=== PATIENT | female | born 1945 | race Caucasian/White ===

== ENCOUNTER 2019-03-08 12:07 | Emergency (ER) | payer MEDICARE ==
--- NOTE | 2019-03-08 12:44 | UC ---
UC General HPI - HPI Summary HPI Summary: pt is c/o having watery diarrhea since this am, about 5x's. she denies having any black or bloody stool as well as no nausea or vomiting. she has no abdominal pain, hx IBD, diverticular disease, sick contacts, travel hx or recent antibiotic use. she denies having fever. she did self tx with Peptobismol with no relief. she is taking po fluids but reports feeling weak because "it just runs right through me". she has attempted no solid foods. she admits to feeling lightheaded upon standing but denies any cp, sob or diaphoresis. she is also c/o a headache. - History of Current Complaint Chief Complaint: UCGI Stated Complaint: DIARRHEA Time Seen by Provider: 03/08/19 12:36 Hx Obtained From: Patient Pain Intensity: 8 Associated Signs & Symptoms: Positive: Diarrhea, Weakness. Negative: Abdominal Pain, Chest Pain, Dizziness, Fever, Melena - Allergy/Home Medications Allergies/Adverse Reactions: Allergies Allergy/AdvReac Type Severity Reaction Status Date / Time No Known Allergies Allergy Verified 03/08/19 12:17 Home Medications: Home Medications Bismuth Subsalicylate [Pepto-Bismol Max Strength] 525 mg PO PRN 03/08/19 [ History] Cholecalciferol TAB* [Vitamin D TAB*] 1,000 unit PO DAILY 03/08/19 [History Confirmed 03/08/19] Levothyroxine TAB* [Synthroid TAB*] 50 mcg PO DAILY 03/08/19 [History Confirmed 03/08/19] Multivitamin [Multivitamins] 1 cap PO DAILY 03/08/19 [History Confirmed 03/08/19 ] PMH/Surg Hx/FS Hx/Imm Hx Endocrine History: Thyroid Disease - Surgical History Surgical History: Yes Surgery Procedure, Year, and Place: PARTIAL HYSTERECTOMY - Family History Known Family History: Positive: Non-Contributory - Social History Lives: With Family Alcohol Use: None Substance Use Type: None Smoking Status (MU): Never Smoked Tobacco Review of Systems All Other Systems Reviewed And Are Negative: Yes Gastrointestinal: Positive: Diarrhea. Negative: Abdominal Pain, Vomiting, Nausea Neurological: Positive: Headache, Weakness Physical Exam Triage Information Reviewed: Yes Appearance: Well-Appearing Vital Signs: Initial Vital Signs Temp 98.5 F 03/08/19 12:20 Pulse 110 03/08/19 12:20 Resp 20 03/08/19 12:20 BP 124/59 03/08/19 12:20 Pulse Ox 99 03/08/19 12:20 Vital Signs Reviewed: Yes Eyes: Positive: Conjunctiva Clear ENT: Positive: Pharynx normal, TMs normal. Negative: Nasal congestion, Nasal drainage Neck: Positive: Supple, Nontender, No Lymphadenopathy Respiratory: Positive: Lungs clear, Normal breath sounds, No respiratory distress Cardiovascular: Positive: No Murmur, Brisk Capillary Refill, Tachycardia - rate= 108 Abdomen Description: Positive: Nontender, No Organomegaly, Soft. Negative: Distended, Guarding Bowel Sounds: Positive: Hyperactive Musculoskeletal: Positive: ROM Intact Neurological: Positive: Alert Psychological: Positive: Normal Response To Family, Age Appropriate Behavior Skin Exam: Normal Re-Evaluation - Re-Evaluation First Eval Re-Evaluation Time: 13:44 Change: Improved - taking po fluids. no v/d since arrival. Second Eval Re-Evaluation Time: 14:12 Change: Improved - HR=88. continues with po fluids. feels improved and no diarrhea Course/Dx - Course Course Of Treatment: ER TRANSFER SUGGESTED GIVEN PT AGE, FEELING WEAK AND LIGHTHEADED WHEN STANDING SO THAT SHE MAY GET IV FLUIDS AND HAVE LABS DONE IN REAL TIME; HOWEVER, SHE IS DECLINING THE TRANSFER. SINCE NO TX IS NOT IN HER BEST INTEREST, I WILL GIVE IV FLUID HERE AND CHECK OUT PT CBC, BMP TO WHICH PT AGREES. 2:30pm, pt has consumed 737ml po fluids plus 550ml NS IV and reports feeling much improved and needed to urinate post tx thus will d/c the IV and discharge to home. - Diagnoses Provider Diagnosis: Diarrhea Discharge - Sign-Out/Discharge Documenting (check all that apply): Patient Departure All imaging exams completed and their final reports reviewed: No Studies - Discharge Plan Condition: Stable Disposition: HOME Patient Education Materials: Acute Diarrhea (ED) Referrals: Baltazar Sparks MD [Primary Care Provider] - Additional Instructions: FOLLOW UP WITH YOUR DOCTOR WITHIN THE NEXT 3 DAYS. GO TO THE ER FOR ANY WORSENING. - Billing Disposition and Condition Condition: STABLE Disposition: Home - Attestation Statements Provider Attestation: I was available for consult. This patient was seen by the JESSICA. The patient was not presented to , seen by or examined by me Krish Goff MD
[2019-03-08] MEDS ORDERED: NS 0.9% 1000 ML** 1,000 ML IV ONE (12:50)
[2019-03-08 14:42] VITALS: BP 132/52
[2019-03-09 10:49] LABS: ABS Basophils 0 10^3/ul (0-0.2); ABS Eosinophils 0 10^3/ul (0-0.6); ABS Lymphocytes 0.5 10^3/ul (1.0-4.8); ABS Monocytes 0.3 10^3/ul (0-0.8); ABS Neutrophils 4.2 10^3/ul (1.5-7.7); ABS Nucleated RBC 0 10^3/ul; Eosinophil % 0.4 %; Hematocrit 42 % (33-41); Lymphocyte % 9.5 %; Mean Corpuscular HGB Conc 34 g/dL (31-36); Mean Corpuscular Hemoglobin 31 pg (27-31); Mean Corpuscular Volume 92 fL (80-97); Nucleated Red Blood Cells % 0.2; Platelet Count 167 10^3/uL (150-450); Red Blood Count 4.57 10^6 /uL (3.70-4.87); Red Cell Distribution Width 14 % (10.5-15)
[2019-03-09 11:00] LABS: Calcium 8.6 mg/dL (8.6-10.3); Potassium 4.1 mmol/L (3.5-5.0)
[2019-03-09 11:06] LABS: BUN/Creatinine Ratio 17.3 (8-20); EGFR African American 67.7 (>60); EGFR Non-African American 55.9 (>60)
== END 2019-03-08 14:56 | disposition home or self-care (01) ==
LOC: UCCORT 12:07
DX: R19.7 Diarrhea, unspecified (principal); E07.9 Disorder of thyroid, unspecified; R51 Headache; R53.1 Weakness
CPT/HCPCS: 36415; 80048; 85025; 96360; 99212; G0463

== ENCOUNTER 2019-12-08 15:24 | Emergency (ER) | payer MEDICARE ==
[2019-12-08 15:34] VITALS: BP 148/72
--- NOTE | 2019-12-08 16:18 | UC ---
Back Pain HPI - HPI Summary HPI Summary: The patient is a 74-year-old female with a 2 day history of right thoracic back pain. She states it hurts when she twists or takes a deep breath in. She has had no fever or chills. She denies any URI symptoms. She denies any UTI symptoms. She has had no chest pain or shortness of breath. - History of Current Complaint Chief Complaint: UCRespiratory Stated Complaint: resp complaint Time Seen by Provider: 12/08/19 16:13 Hx Obtained From: Patient Onset/Duration: Sudden Onset, Gradual Onset Timing: Constant Severity Initially: Mild Severity Currently: Moderate Pain Intensity: 5 Pain Scale Used: 0-10 Numeric Back Pain: Is Discrete @ - see image Character: Dull, Aching Aggravating Factor(s): Movement, Bending, Other - deep breath Alleviating Factor(s): Rest Associated Signs And Symptoms: Negative: Swelling, Redness, Bruising, Fever, Weakness, Numbness, Tingling, Abdominal Pain, Flank Pain, Bladder Incontinence, Bowel Incontinence, Weight Loss, Pain with Weight Bearing Full Body (No Head): 1 - pain here - Allergies/Home Medications Allergies/Adverse Reactions: Allergies Allergy/AdvReac Type Severity Reaction Status Date / Time adhesive tape Allergy Rash Verified 12/08/19 15:34 Home Medications: Home Medications Acetaminophen [Tylenol Extra Strength] 2 tab PO ONCE PRN 12/08/19 [History Confirmed 12/08/19] Omeprazole Magnesium [Prilosec] 1 tab PO DAILY 12/08/19 [History Confirmed 12/08] PMH/Surg Hx/FS Hx/Imm Hx Previously Healthy: Yes Endocrine History: Hypothyroidism - Surgical History Surgical History: Yes Surgery Procedure, Year, and Place: PARTIAL HYSTERECTOMY - Family History Known Family History: Positive: Non-Contributory - Social History Alcohol Use: None Substance Use Type: None Smoking Status (MU): Never Smoked Tobacco Review of Systems All Other Systems Reviewed And Are Negative: Yes Constitutional: Positive: Fatigue Skin: Positive: Negative Eyes: Positive: Negative ENT: Positive: Negative Respiratory: Positive: Negative Cardiovascular: Positive: Negative Gastrointestinal: Positive: Negative Genitourinary: Positive: Negative Motor: Positive: Negative Neurovascular: Positive: Negative Musculoskeletal: Positive: Negative Neurological: Positive: Negative Psychological: Positive: Negative Physical Exam Triage Information Reviewed: Yes Appearance: Well-Appearing, No Pain Distress, Well-Nourished Vital Signs: Initial Vital Signs Temp 97.7 F 12/08/19 15:29 Pulse 78 12/08/19 15:29 Resp 18 12/08/19 15:29 BP 148/72 12/08/19 15:29 Pulse Ox 97 12/08/19 15:29 Vital Signs Reviewed: Yes Eyes: Positive: Conjunctiva Clear ENT: Positive: Hearing grossly normal, Uvula midline. Negative: Nasal congestion, Nasal drainage, Trismus, Muffled voice, Hoarse voice Dental: Negative: Abscess @ Neck: Positive: Supple, Nontender, No Lymphadenopathy Respiratory: Positive: Chest non-tender, Lungs clear, Normal breath sounds, No respiratory distress, No accessory muscle use Cardiovascular: Positive: RRR, No Murmur Abdomen Description: Positive: Nontender, No Organomegaly. Negative: CVA Tenderness (R), CVA Tenderness (L) Bowel Sounds: Positive: Present Musculoskeletal: Positive: ROM Intact, No Edema Neurological: Positive: Alert Psychological Exam: Normal Skin Exam: Normal Diagnostics - Laboratory Lab Results: UA + leuks - Radiology No standard instances Radiology Interpretation Completed By: Radiologist Summary of Radiographic Findings: #. Elevated lung volumes and mild prominence of interstitial markings. No compelling alveolar consolidation to suggest pneumonia. Negative for focal pulmonary lesions, pleural effusions, or pneumothorax. #. Negative for cardiomegaly. Unremarkable central pulmonary vasculature. Moderate retrocardiac hiatal hernia with air-fluid level. #. Unremarkable soft tissue contours and osseous structures for age. IMPRESSION: # . Stigmata of probable obstructive lung disease. No acute pulmonary or cardiac process evident Back Pain Course/Dx - Differential Dx/Diagnosis Provider Diagnosis: Strain of thoracic region, Hiatal hernia Discharge ED - Sign-Out/Discharge Documenting (check all that apply): Patient Departure All imaging exams completed and their final reports reviewed: Yes - Discharge Plan Condition: Stable Disposition: HOME Prescriptions: Cephalexin CAP* [Keflex CAP*] 500 mg PO BID #10 cap Patient Education Materials: Thoracic Pain (ED), Hiatal Hernia (ED) Referrals: Rosalino GORDONManfred [Primary Care Provider] - 1 Week Additional Instructions: we will start antibiotics in case you have a UTI I suspect your symptoms are due to a back strain tylenol - Billing Disposition and Condition Condition: STABLE Disposition: Home
--- NOTE | 2019-12-10 18:41 | UC ---
- Progress Note Progress Note: Urine culture final with no growth of clinically significant organisms. Patient to be called and instructed to discontinue antibiotic. Course/Dx - Diagnoses Provider Diagnoses: Strain of thoracic region, Hiatal hernia Discharge ED - Sign-Out/Discharge Documenting (check all that apply): Post-Discharge Follow Up All imaging exams completed and their final reports reviewed: Yes - Discharge Plan Condition: Stable Disposition: HOME Prescriptions: Cephalexin CAP* [Keflex CAP*] 500 mg PO BID #10 cap Patient Education Materials: Hiatal Hernia (ED), Thoracic Pain (ED) Referrals: Rosalino GORDON,Manfred Jaramillo [Primary Care Provider] - 1 Week Additional Instructions: we will start antibiotics in case you have a UTI I suspect your symptoms are due to a back strain tylenol - Billing Disposition and Condition Condition: STABLE Disposition: Home
== END 2019-12-08 17:28 | disposition home or self-care (01) ==
LOC: UCEAST 15:24
DX: S29.012A Strain of muscle and tendon of back wall of thorax, initial encounter (principal); Z91.09 Other allergy status, other than to drugs and biological substances; X50.1XXA Overexertion from prolonged static or awkward postures, initial encounter; Y92.9 Unspecified place or not applicable
CPT/HCPCS: 71046; 81003; 87086; 99212; G0463

== ENCOUNTER 2020-06-14 17:27 | Observation (INO) ==
[2020-06-14 18:40] LABS: ABS Basophils 0.1 10^3/ul (0-0.2); ABS Eosinophils 0.2 10^3/ul (0-0.6); ABS Lymphocytes 2.2 10^3/ul (1.0-4.8); ABS Monocytes 0.6 10^3/ul (0-0.8); ABS Neutrophils 5.3 10^3/ul (1.5-7.7); Eosinophil % 2.5 %; Hematocrit 41 % (35-47); Hemoglobin 14.1 g/dL (12.0-16.0); Lymphocyte % 26.5 %; Mean Corpuscular HGB Conc 34 g/dL (31-36); Mean Corpuscular Hemoglobin 31 pg (27-31); Mean Corpuscular Volume 90 fL (80-97); Mean Platelet Volume 8.3 fL (7.4-10.4); Platelet Count 229 10^3/uL (150-450); Red Blood Count 4.61 10^6 /uL (3.70-4.87); Red Cell Distribution Width 13 % (10-15); White Blood Count 8.3 10^3/uL (3.5-10.8)
[2020-06-14 18:59] LABS: ALT 15 U/L (7-52); Albumin 3.9 g/dL (3.2-5.2); Albumin/Globulin Ratio 1.2 (1-3); Alkaline Phosphatase 80 U/L (34-104); BUN/Creatinine Ratio 21.1 (8-20); Blood Urea Nitrogen 19 mg/dL (6-24); CO2 Carbon Dioxide 27 mmol/L (22-32); Calcium 9.1 mg/dL (8.6-10.3); Chloride 104 mmol/L (101-111); EGFR African American 74.5 (>60); EGFR Non-African American 61.5 (>60); Globulin 3.2 g/dL (2-4); Glucose 127 mg/dL (70-100); Sodium 137 mmol/L (135-145); Total Protein 7.1 g/dL (6.4-8.9)
[2020-06-14 19:09] LABS: Anion Gap 6 mmol/L (2-11)
[2020-06-14] MEDS ORDERED: Morphine 4 MG/ML VIAL (1 ml) IV ONE (20:31)
[2020-06-14] MEDS ORDERED: Ondansetron 4 mg VIAL 2 MG/ML 2 ml VIAL IV PRN (20:53)
[2020-06-14 21:12] LABS: Potassium Redraw 3.9 mmol/L (3.5-5.0)
[2020-06-14 21:15] LABS: Troponin I 0.01 ng/mL (<0.03)
[2020-06-14 21:22] LABS: C Reactive Protein 19.13 mg/L (<8.01)
[2020-06-14] MEDS: Heparin 5000 UNITS/ML 1 mL VIAL SUBCUT SCH (22:04)
[2020-06-14 22:19] LABS: Erythrocyte Sed Rate 20 mm/Hr (0-29)
[2020-06-15 00:07] LABS: Magnesium 2.2 mg/dL (1.9-2.7)
[2020-06-15 00:23] LABS: TSH Ultra Thyroid Stim Horm 5.14 mcIU/mL (0.34-5.60)
[2020-06-15] MEDS ORDERED: Nitro 2% OINT (Nitroglycerin) 1 INCH/PAK TOPICAL ONE (01:44)
[2020-06-15] MEDS: Heparin 5000 UNITS/ML 1 mL VIAL SUBCUT SCH ×2 (06:02→13:04)
[2020-06-15 06:47] LABS: ABS Basophils 0.1 10^3/ul (0-0.2); ABS Eosinophils 0.2 10^3/ul (0-0.6); ABS Lymphocytes 2.1 10^3/ul (1.0-4.8); ABS Monocytes 0.4 10^3/ul (0-0.8); ABS Neutrophils 4.5 10^3/ul (1.5-7.7); Eosinophil % 2.7 %; Hematocrit 42 % (35-47); Lymphocyte % 29.3 %; Mean Corpuscular HGB Conc 33 g/dL (31-36); Mean Corpuscular Hemoglobin 31 pg (27-31); Mean Corpuscular Volume 92 fL (80-97); Mean Platelet Volume 8.2 fL (7.4-10.4); Nucleated Red Blood Cells % 0.1; Platelet Count 185 10^3/uL (150-450); Red Blood Count 4.55 10^6 /uL (3.70-4.87); Red Cell Distribution Width 14 % (10-15); White Blood Count 7.3 10^3/uL (3.5-10.8)
[2020-06-15 06:57] LABS: Calcium 8.6 mg/dL (8.6-10.3); Potassium 4.3 mmol/L (3.5-5.0)
[2020-06-15 07:03] LABS: BUN/Creatinine Ratio 18.2 (8-20); EGFR African American 76.4 (>60); EGFR Non-African American 63.2 (>60); HDL Cholesterol 60.9 mg/dL
[2020-06-15] MEDS ORDERED: Nitro Patch/OINT Remove PATCH TOPICAL ONE (08:00)
[2020-06-15] MEDS ORDERED: Regadenoson 0.4 MG/5 ML SYRINGE ONE (08:03)
[2020-06-15] MEDS ORDERED: Aminophylline 25 MG/ML VIAL ONE (08:03)
[2020-06-15] MEDS ORDERED: Aspirin EC 81 mg TAB.EC (enteric coated) PO SCH (09:00)
[2020-06-15 15:27] VITALS: BP 139/57
== END 2020-06-15 16:30 | disposition home or self-care (01) ==
LOC: ED 17:27 → MEDTELE 17:27
PROVIDERS: ADMIT Nurse Practitioner Family; ATTEND Internal Medicine

== ENCOUNTER 2021-10-25 21:35 | Inpatient (IN) ==
[2021-10-26 01:34] LABS: Hematocrit 38 % (35-47); Hemoglobin 12.9 g/dL (12.0-16.0); Mean Corpuscular HGB Conc 34 g/dL (31-36); Mean Corpuscular Hemoglobin 32 pg (27-31); Mean Corpuscular Volume 93 fL (80-97); Mean Platelet Volume 7.9 fL (7.4-10.4); Platelet Count 197 10^3/uL (150-450); Red Blood Count 4.11 10^6 /uL (3.70-4.87); Red Cell Distribution Width 14 % (10-15); White Blood Count 7.4 10^3/uL (3.5-10.8)
[2021-10-26 01:50] LABS: Rapid COVID-19 Molecular Undetected (Undetected)
[2021-10-26 01:51] LABS: Influenza A Molecular Negative (Negative); Influenza B Molecular Negative (Negative)
[2021-10-26 01:53] LABS: Albumin 3.6 g/dL (3.2-5.2); C Reactive Protein 249.75 mg/L (<8.01); Globulin 3.7 g/dL (2-4); Potassium 3.8 mmol/L (3.5-5.0); Total Bilirubin 0.6 mg/dL (0.2-1.0); Total Protein 7.3 g/dL (6.4-8.9)
[2021-10-26 02:32] LABS: Urine Appearance Cloudy; Urine Bilirubin Negative (Negative); Urine Blood 1+ (Negative); Urine Color Amber; Urine Glucose Negative (Negative); Urine Ketones 1+ (Negative); Urine Nitrite Negative (Negative); Urine Protein 2+(100 mg/dL) (Negative); Urine Specific Gravity 1.028 (1.002-1.030); Urine Urobilinogen Negative (Negative)
[2021-10-26 02:36] LABS: Urine Bacteria 1+ (Absent); Urine Red Blood Cell 2+(6-10/hpf) (Absent); Urine Squamous Epithelial Cell Present (Absent); Urine White Blood Cell 1+(6-10/hpf) (Absent)
[2021-10-26 02:37] LABS: ABS Lymphocytes 0.8 10^3/ul (1.0-4.8); ABS Monocytes 1.1 10^3/ul (0-0.8); ABS Neutrophils 5.5 10^3/ul (1.5-7.7); Eosinophil % 0.1 %; Lymphocyte % 10.3 %; Nucleated Red Blood Cells % 0.1
[2021-10-26] MEDS ORDERED: cefTRIAXone 1 gm/50 mL NS BAG 1 GM/50 ML BAG IV ONE (03:22)
[2021-10-26] MEDS ORDERED: Azithromycin 500 mg/250 ml NS 500 MG/250 ML BAG IVPB ONE (03:22)
[2021-10-26] MEDS ORDERED: Albuterol HFA INHALER 8 gm MDI INH PRN (04:20)
[2021-10-26] MEDS ORDERED: NS 0.9% 1000 ml BAG 1,000 ML IV SCH (04:30)
[2021-10-26 05:00] LABS: Osmolality Serum 288 mOsm/kg (275-295)
[2021-10-26 09:21] LABS: Urine Osmo 885 mOsm/kg (150-1150)
[2021-10-26] MEDS: Aspirin EC 81 mg TAB.EC (enteric coated) PO SCH (13:10)
[2021-10-26] MEDS: Enoxaparin 40 MG/0.4 ML SYR SUBCUT SCH (13:11)
[2021-10-27] MEDS ORDERED: cefTRIAXone 1 gm/50 mL NS BAG 1 GM/50 ML BAG IVPB SCH (05:00)
[2021-10-27 05:50] LABS: Hematocrit 35 % (35-47); Hemoglobin 11.9 g/dL (12.0-16.0); Mean Corpuscular HGB Conc 34 g/dL (31-36); Mean Corpuscular Hemoglobin 32 pg (27-31); Mean Corpuscular Volume 95 fL (80-97); Mean Platelet Volume 8.2 fL (7.4-10.4); Platelet Count 162 10^3/uL (150-450); Red Cell Distribution Width 14 % (10-15)
[2021-10-27] MEDS ORDERED: Azithromycin 500 mg/250 ml NS 500 MG/250 ML BAG IVPB SCH (06:00)
[2021-10-27 06:39] LABS: Calcium 8.6 mg/dL (8.6-10.3); Potassium 3.7 mmol/L (3.5-5.0); eGFR CKD-EPI 91.3 (>60)
[2021-10-27] MEDS: Enoxaparin 40 MG/0.4 ML SYR SUBCUT SCH (07:51)
[2021-10-27] MEDS: Aspirin EC 81 mg TAB.EC (enteric coated) PO SCH (07:51)
[2021-10-27 16:59] VITALS: BP 113/49
== END 2021-10-27 18:15 | disposition home or self-care (01) | DRG 193 ==
LOC: ED 21:35 → EDHOLD 10-26 04:16 → MED 10-26 10:32
PROVIDERS: ADMIT Internal Medicine; ATTEND Internal Medicine

== ENCOUNTER 2023-10-10 12:00 | Observation (INO) ==
[2023-10-10 12:32] LABS: ABS Basophils 0.1 10^3/uL (0.0-0.1); ABS Eosinophils 0.2 10^3/uL (0.0-0.5); ABS Lymphocytes 1.4 10^3/uL (1.0-4.8); ABS Monocytes 0.5 10^3/uL (0.0-0.9); ABS Neutrophils 3.6 10^3/uL (1.5-7.6); ABS Nucleated RBC 0.01 10^3/ul; Eosinophil % 3.5 %; Hematocrit 39.3 % (35-45); Hemoglobin 13.4 g/dL (11.5-14.3); Lymphocyte % 23.9 %; Mean Corpuscular Hemoglobin 32.6 pg (27-33); Mean Corpuscular Hgb Conc 34.1 g/dL (31-36); Mean Corpuscular Volume 95.7 fL (80-97); Mean Platelet Volume 7.9 fL (7.5-11.2); Nucleated Red Blood Cells % 0.1 %/100WBC (0.0-0.8); Platelet Count 185 10^3/uL (150-450); Red Blood Count 4.11 10^6/uL (3.63-4.92); Red Cell Distribution Width 13.7 % (12-17); White Blood Count 5.7 10^3/uL (3.8-11.8)
[2023-10-10 13:11] LABS: High Sens Troponin Baseline < 3 pg/mL (<15)
[2023-10-10 13:22] LABS: ALT 14 U/L (7-52); Albumin/Globulin Ratio 1.3 (1-3); Alkaline Phosphatase 78 U/L (35-149); Anion Gap 6 mmol/L (2-16); Blood Urea Nitrogen 16 mg/dL (6-24); CO2 Carbon Dioxide 30 mmol/L (22-32); Calcium 9.4 mg/dL (8.6-10.3); Chloride 102 mmol/L (101-111); Creatinine, Serum 0.88 mg/dL (0.51-0.95); Glucose 109 mg/dL (70-100); Sodium 138 mmol/L (135-145); Total Bilirubin 0.6 mg/dL (0.2-1.0); eGFR CKD-EPI 68.1 (>60)
[2023-10-10 14:54] LABS: High Sensitivity Troponin 1 Hr < 3 pg/mL (<15)
[2023-10-10] MEDS ORDERED: Iohexol 350 (CONTRAST) 500 ML MDV IV ONE (15:04)
[2023-10-10 16:09] LABS: Cholesterol 146 mg/dL; HDL Cholesterol 54.8 mg/dL; LDL Cholesterol 62 mg/dL; Triglycerides 146 mg/dL
[2023-10-10 21:38] LABS: Potassium Redraw 4.3 mmol/L (3.5-5.0)
[2023-10-11] MEDS ORDERED: Regadenoson 0.4 MG/5 ML SYRINGE ONE (09:37)
[2023-10-11 10:10] VITALS: BP 135/58
== END 2023-10-11 14:00 | disposition home or self-care (01) ==
LOC: ED 12:00 → EDHOLD 12:00 → MEDTELE 19:42
PROVIDERS: ADMIT Student in an Organized Health Care Education/Training Program; ATTEND Student in an Organized Health Care Education/Training Program